=== PATIENT | male | born 1985 | race Caucasian/White ===

== ENCOUNTER 2019-07-20 01:24 | Observation (INO) | payer OTHER ==
[~2019-07-20] VITALS: Ht 167.6 cm; Wt 138.0 kg
[2019-07-20] VITALS (13 sets, daily range): BP systolic 129–168; BP diastolic 74–111
--- NOTE | 2019-07-20 01:47 | PHYS DOC ---
Past Medical History Past Medical History: Hypertension Smoking: Chew Adult General Chief Complaint Chief Complaint: CHEST PAIN-CARDIAC NATURE HPI HPI 34-year-old male presents with substernal chest pressure. He states he woke up with the severe pain and pressure approximately 2 hours ago. He states at that time he felt nauseous and was covered in sweat. He denies any shortness of breath. He states before 2 hours ago he had no symptoms. Currently he describes the pain is severe and nothing is alleviating his symptoms.[] Review of Systems Review of Systems Constitutional: Denies fever or chills [] Eyes: Denies change in visual acuity, redness, or eye pain [] HENT: Denies nasal congestion or sore throat [] Respiratory: Denies cough or shortness of breath [] Cardiovascular: No additional information not addressed in HPI [] GI: Denies abdominal pain, nausea, vomiting, bloody stools or diarrhea [] : Denies dysuria or hematuria [] Musculoskeletal: Denies back pain or joint pain [] Integument: Denies rash or skin lesions [] Neurologic: Denies headache, focal weakness or sensory changes [] Endocrine: Denies polyuria or polydipsia [] All other systems were reviewed and found to be within normal limits, except as documented in this note. Current Medications Current Medications Current Medications Medications (Trade) Dose Ordered Sig/Didi Start Time Stop Time Status Last Admin Dose Admin Aspirin (Children'S Aspirin) 324 mg 1X ONCE 07/20/19 02:00 07/20/19 02:01 DC 07/20/19 02:03 324 MG Nitroglycerin (Nitrostat) 0.4 mg PRN Q5MIN PRN 07/20/19 01:45 07/20/19 02:22 0.4 MG Allergies Allergies Allergies Coded Allergies Type Severity Reaction Last Updated Verified No Known Drug Allergies 07/20/19 No Physical Exam Physical Exam Constitutional: Well developed, well nourished, mild to moderate distress, non- toxic appearance. [] HENT: Normocephalic, atraumatic, bilateral external ears normal, oropharynx moist, no oral exudates, nose normal. [] Eyes: PERRLA, EOMI, conjunctiva normal, no discharge. [] Neck: Normal range of motion, no tenderness, supple, no stridor. [] Cardiovascular:Heart rate regular rhythm, no murmur [] Lungs & Thorax: Bilateral breath sounds clear to auscultation [] Abdomen: Bowel sounds normal, soft, no tenderness, no masses, no pulsatile masses. [] Skin: Warm, dry, no erythema, no rash. [] Back: No tenderness, no CVA tenderness. [] Extremities: No tenderness, no cyanosis, no clubbing, ROM intact, no edema. [] Neurologic: Alert and oriented X 3, normal motor function, normal sensory function, no focal deficits noted. [] Psychologic: Anxious. [] Current Patient Data Vital Signs Vital Signs Date Time Temp Pulse Resp B/P (MAP) Pulse Ox O2 Delivery O2 Flow Rate FiO2 07/20/19 02:22 81 153/83 07/20/19 02:13 19 98 Room Air Lab Values Laboratory Tests Test 07/20/19 01:50 White Blood Count 9.0 x10^3/uL (4.0-11.0) Red Blood Count 4.68 x10^6/uL (4.30-5.70) Hemoglobin 15.6 g/dL (13.0-17.5) Hematocrit 44.6 % (39.0-53.0) Mean Corpuscular Volume 95 fL (79-100) Mean Corpuscular Hemoglobin 33 pg (25-35) Mean Corpuscular Hemoglobin Concent 35 g/dL (31-37) Red Cell Distribution Width 13.0 % (11.5-14.5) Platelet Count 226 x10^3/uL (140-400) Neutrophils (%) (Auto) 57 % (31-73) Lymphocytes (%) (Auto) 32 % (24-48) Monocytes (%) (Auto) 8 % (0-9) Eosinophils (%) (Auto) 3 % (0-3) Basophils (%) (Auto) 1 % (0-3) Neutrophils # (Auto) 5.1 x10^3/uL (1.8-7.7) Lymphocytes # (Auto) 2.8 x10^3/uL (1.0-4.8) Monocytes # (Auto) 0.7 x10^3/uL (0.0-1.1) Eosinophils # (Auto) 0.3 x10^3/uL (0.0-0.7) Basophils # (Auto) 0.1 x10^3/uL (0.0-0.2) Sodium Level 143 mmol/L (136-145) Potassium Level 3.7 mmol/L (3.5-5.1) Chloride Level 106 mmol/L (98-107) Carbon Dioxide Level 26 mmol/L (21-32) Anion Gap 11 (6-14) Blood Urea Nitrogen 19 mg/dL (8-26) Creatinine 1.0 mg/dL (0.7-1.3) Estimated GFR (Cockcroft-Gault) 86.1 BUN/Creatinine Ratio 19 (6-20) Glucose Level 108 mg/dL (70-99) H Calcium Level 9.2 mg/dL (8.5-10.1) Total Bilirubin 0.2 mg/dL (0.2-1.0) Aspartate Amino Transferase (AST) 11 U/L (15-37) L Alanine Aminotransferase (ALT) 34 U/L (16-63) Alkaline Phosphatase 62 U/L (46-116) Troponin I Quantitative < 0.017 ng/mL (0.000-0.055) JZ-Vpx-M-Type Natriuretic Peptide 20 pg/mL (0-124) Total Protein 7.3 g/dL (6.4-8.2) Albumin 3.7 g/dL (3.4-5.0) Albumin/Globulin Ratio 1.0 (1.0-1.7) Lipase 113 U/L (73-393) Laboratory Tests 07/20/19 01:50 Laboratory Tests 07/20/19 01:50 EKG EKG [] Interpretation Time: EKG: Normal sinus rhythm rate [address]-T changes Radiology/Procedures Radiology/Procedures [] Course & Med Decision Making Course & Med Decision Making Pertinent Labs and Imaging studies reviewed. (See chart for details) [ED course: Evaluation reveals a young man with substernal chest pressure. Pain was severe on arrival to the emergency department. EKG did not show any concerning ischemic changes. However, the patient was given sublingual nitro glycerin with near complete resolution of his symptoms. While his heart score was 3 I still believe the patient needs to be observed and risk stratified.] Dragon Disclaimer Dragon Disclaimer This electronic medical record was generated, in whole or in part, using a voice recognition dictation system. Departure Departure Impression: Primary Impression: Chest pain Disposition: 09 ADMITTED INPATIENT Admitting Physician: DARREN Condition: IMPROVED The HEART Score for CP Pts HEART Score for Chest Pain: HEART Score for Chest Pain Response (Comments) Value History Highly Suspicious 2 Age < 45 0 Risk Factors 1 or 2 Risk Factors 1 Troponin < Normal Limit 0 Total 3 Risk Factors: Risk Factors: DM, Current or recent (<one month) smoker, HTN, HLP, family history of CAD, obesity. Risk Scores: Score 0 - 3: 2.5% MACE over next 6 weeks - Discharge Home Score 4 - 6: 20.3% MACE over next 6 weeks - Admit for Clinical Observation Score 7 - 10: 72.7% MACE over next 6 weeks - Early Invasive Strategies Problem Qualifiers Primary Impression: Chest pain Chest pain type: unspecified Qualified Codes: R07.9 - Chest pain, unspecified ASHLY GUTIERREZ DO Jul 20, 2019 01:47
[2019-07-20] MEDS ORDERED: ASPIRIN CHEWABLE 81 MG TABLET. PO ONE (02:00)
[2019-07-20] MEDS: NITROGLYCERIN SUBLINGUAL 0.4 MG BOTTLE OF 25. SL PRN ×3 (02:05→02:22)
[2019-07-20 02:06] LABS: BASO # 0.1 x10^3/uL (0.0-0.2); BASO % 1 % (0-3); EOS # 0.3 x10^3/uL (0.0-0.7); EOS % 3 % (0-3); HEMATOCRIT 44.6 % (39.0-53.0); HEMOGLOBIN 15.6 g/dL (13.0-17.5); LYMPH # 2.8 x10^3/uL (1.0-4.8); LYMPH % 32 % (24-48); MEAN CORPUSCULAR HEMOGLOBIN 33 pg (25-35); MEAN CORPUSCULAR HGB CONC 35 g/dL (31-37); MEAN CORPUSCULAR VOLUME 95 fL (79-100); MONO # 0.7 x10^3/uL (0.0-1.1); MONO % 8 % (0-9); NEUT # 5.1 x10^3/uL (1.8-7.7); NEUT % 57 % (31-73); PLATELET COUNT 226 x10^3/uL (140-400); RED BLOOD COUNT 4.68 x10^6/uL (4.30-5.70)
[2019-07-20 02:15] LABS: CALCIUM 9.2 mg/dL (8.5-10.1); GFR 86.1; POTASSIUM 3.7 mmol/L (3.5-5.1); PROTHROMBIN TIME PATIENT 12.3 SEC (11.7-14.0)
[2019-07-20 02:21] LABS: ALBUMIN 3.7 g/dL (3.4-5.0); TOTAL BILIRUBIN 0.2 mg/dL (0.2-1.0); TOTAL PROTEIN 7.3 g/dL (6.4-8.2)
[2019-07-20] MEDS ORDERED: ACETAMINOPHEN 325 MG TABLET. PO PRN (02:30)
[2019-07-20] MEDS ORDERED: ONDANSETRON PF 4 MG/2 ML VIAL. IV PRN (02:30)
[2019-07-20] MEDS ORDERED: MORPHINE SULFATE 4 MG/ML VIAL. IV PRN (02:30)
[2019-07-20] MEDS ORDERED: NITROGLYCERIN OINT 1 GM PACKET. TP ONE (02:45)
[2019-07-20] MEDS ORDERED: INFLUENZA VAX SCREEN BY RX. MC PRN (05:30)
--- NOTE | 2019-07-20 06:06 | RAD ---
Study: CHEST AP ONLY Indication: Chest pain. Comparison: None available. Findings: Low lung volumes with resultant apparent prominence of the cardiomediastinal silhouette. This is also likely accentuated by portable upright technique. No lobar infiltrate, large effusion or pneumothorax. Impression: Apparent prominence of the cardiomediastinal silhouette is favored in part related to lung low volumes and technique. No radiographic manifestations of overt failure. No lobar consolidation. Electronically signed by: HUMERA JUAREZ MD (07/20/2019 6:03 AM) [facility]
--- NOTE | 2019-07-20 06:18 | EKG ---
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
[2019-07-20] MEDS ORDERED: FLU VAX QS 2019-20 (36MOS+)/PF 0.5 ML SYRINGE. VAX IM ONE (09:00)
--- NOTE | 2019-07-20 10:44 | PDOC2 ---
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 Reports no prior long distance travel and no recent falls or injury. He works that requires good usage of ladder and has not been having any exertional CP nor BENÍTEZ and his last work requiring ladder use was Thursday. Thursday he was having chest pressure which did not last long. He was also feeling fatigued at that time. Last night midnight he woke up with chest pressure describing it like someone is sitting on his chest. He was diaphoretic and nauseated but no significant SOA. He checked his BP and it was high at home like 180s/120s. His pain was constant and finally got better after 3-4 hours when 3 NTG given and NTG paste was pl aced. He was told in the past that he needs BP meds but elected not to have it. No hx of DM nor HLP and no childhood heart disease. No hx of VTE. He does not take any routine medications. No routine NSAID therapy. PAST MEDICAL HISTORY Cardiovascular: HTN Pulmonary: No pertinent hx CENTRAL NERVOUS SYSTEM: Other (No pertinent history) GI: No pertinent hx Heme/Onc: No pertinent hx Hepatobiliary: No pertinent hx Psych: No pertinent hx Musculoskeletal: Other (None) Rheumatologic: No pertinent hx Infectious disease: No pertinent hx ENT: No pertinent hx Renal/: No pertinent hx Endocrine: No pertinent hx Dermatology: No pertinent hx PAST SURGICAL HISTORY Past Surgical History: Arthroscopy (left knee repair) FAMILY HISTORY Family History: Heart Disease (mother) SOCIAL HISTORY Smoke: No ALCOHOL: none Drugs: None Lives: with Family CURRENT MEDICATIONS CURRENT MEDICATIONS Current Medications Medications (Trade) Dose Ordered Sig/Didi Route PRN Reason Start Time Stop Time Status Last Admin Dose Admin Aspirin (Children'S Aspirin) 324 mg 1X ONCE PO 07/20/19 02:00 07/20/19 02:01 DC 07/20/19 02:03 Nitroglycerin (Nitrostat) 0.4 mg PRN Q5MIN PRN SL CHEST PAIN 07/20/19 01:45 07/20/19 02:22 Nitroglycerin (Nitro-Bid Oint) 1 inch 1X ONCE TP 07/20/19 02:45 07/20/19 02:46 DC 07/20/19 06:14 ALLERGIES ALLERGIES: Coded Allergies: No Known Drug Allergies (Unverified , 07/20/19) ROS Review of System 14 point ROS evaluated with pertinent positives noted per HPI PHYSICAL EXAM General: Alert, Oriented X3, Cooperative, No acute distress HEENT: Atraumatic, Mucous membr. moist/pink Lungs: Clear to auscultation, Normal air movement Heart: Regular rate (SR), Normal S1, Normal S2, No murmurs Abdomen: Soft, No tenderness, Other (obese) Extremities: No cyanosis, No edema Skin: No significant lesion Neuro: Normal speech, Sensation intact Psych/Mental Status: Mental status NL, Mood NL MUSCULOSKELETAL: Full range of motion without pain, Osteoarthritic changes both hands VITALS/I&O VITALS/I&O: Vital Signs Date Time Temp Pulse Resp B/P (MAP) Pulse Ox O2 Delivery O2 Flow Rate FiO2 07/20/19 07:00 98.2 65 18 156/90 (112) 97 Room Air 98.2 I & O 07/19/19 07/19/19 07/20/19 15:00 23:00 07:00 Output Total 150 ml Balance -150 ml LABS Lab: Laboratory Tests Test 07/20/19 01:50 07/20/19 05:40 07/20/19 08:30 White Blood Count 9.0 x10^3/uL (4.0-11.0) Red Blood Count 4.68 x10^6/uL (4.30-5.70) Hemoglobin 15.6 g/dL (13.0-17.5) Hematocrit 44.6 % (39.0-53.0) Mean Corpuscular Volume 95 fL (79-100) Mean Corpuscular Hemoglobin 33 pg (25-35) Mean Corpuscular Hemoglobin Concent 35 g/dL (31-37) Red Cell Distribution Width 13.0 % (11.5-14.5) Platelet Count 226 x10^3/uL (140-400) Neutrophils (%) (Auto) 57 % (31-73) Lymphocytes (%) (Auto) 32 % (24-48) Monocytes (%) (Auto) 8 % (0-9) Eosinophils (%) (Auto) 3 % (0-3) Basophils (%) (Auto) 1 % (0-3) Neutrophils # (Auto) 5.1 x10^3/uL (1.8-7.7) Lymphocytes # (Auto) 2.8 x10^3/uL (1.0-4.8) Monocytes # (Auto) 0.7 x10^3/uL (0.0-1.1) Eosinophils # (Auto) 0.3 x10^3/uL (0.0-0.7) Basophils # (Auto) 0.1 x10^3/uL (0.0-0.2) Prothrombin Time 12.3 SEC (11.7-14.0) Prothrombin Time INR 0.9 (0.8-1.1) Sodium Level 143 mmol/L (136-145) Potassium Level 3.7 mmol/L (3.5-5.1) Chloride Level 106 mmol/L (98-107) Carbon Dioxide Level 26 mmol/L (21-32) Anion Gap 11 (6-14) Blood Urea Nitrogen 19 mg/dL (8-26) Creatinine 1.0 mg/dL (0.7-1.3) Estimated GFR (Cockcroft-Gault) 86.1 BUN/Creatinine Ratio 19 (6-20) Glucose Level 108 mg/dL (70-99) H Calcium Level 9.2 mg/dL (8.5-10.1) Total Bilirubin 0.2 mg/dL (0.2-1.0) Aspartate Amino Transferase (AST) 11 U/L (15-37) L Alanine Aminotransferase (ALT) 34 U/L (16-63) Alkaline Phosphatase 62 U/L (46-116) Troponin I Quantitative < 0.017 ng/mL (0.000-0.055) < 0.017 ng/mL (0.000-0.055) < 0.017 ng/mL (0.000-0.055) NT-Mlk-O-Type Natriuretic Peptide 20 pg/mL (0-124) Total Protein 7.3 g/dL (6.4-8.2) Albumin 3.7 g/dL (3.4-5.0) Albumin/Globulin Ratio 1.0 (1.0-1.7) Lipase 113 U/L (73-393) Triglycerides Level 228 mg/dL (0-150) H Cholesterol Level 141 mg/dL (0-200) LDL Cholesterol, Calculated 67 mg/dL (0-100) VLDL Cholesterol, Calculated 46 mg/dL (0-40) H Non-HDL Cholesterol Calculated 113 mg/dL (0-129) HDL Cholesterol 28 mg/dL (40-60) L Cholesterol/HDL Ratio 5.0 Thyroid Stimulating Hormone (TSH) 2.742 uIU/mL (0.358-3.74) Laboratory Tests 07/20/19 01:50 Laboratory Tests 07/20/19 01:50 ASSESSMENT/PLAN ASSESSMENT/PLAN 1. Chest pain: UA features relieved by x3 NTG SL 2. HTN urgency. improving. 3. Chews tobacco 4. Morbid obesity 5. Possible BASHIR 6. DLP 7. Metabolic syndrome Recommendations 1. CP possibly from uncontrolled HTN. Given his significant S/S presentation with risk factors he will need an ischemic workup Ischemic workup options discussed with pt and spouse including risks and benefits and would like to proceed with [facility]. 2. Pending [facility] will start him on statin. lisinopril and chlorthalidone. 3. Will BASHIR w/u referral. wt loss. Dietitian consult. 4. TTE pending. 5. Discussed treatment compliance 6. Cessation of tobacco. ARIEL BENAVIDES MD 07/21/192131: CARDIAC CONSULT ASSESSMENT/PLAN ASSESSMENT/PLAN Late entry for 07/20/2019. Pt. seen and examined. Agree with above PRODUCT CRAFTSMAN note. 34 y.o male with unstable angina. Given multiple risk factors a cath was recommended. Coronary angiography is unremarkable. Aggressive medical therapy to be continued Supportive care. GAYLE GUTIERREZ APRN Jul 20, 2019 10:44 ARIEL BENAVIDES MD Jul 21, 2019 21:32
[2019-07-20] MEDS ORDERED: IV NORMAL SALINE 1000ML BAG 1,000 ML IV SCH (11:15)
[2019-07-20] MEDS ORDERED: HEPARIN for ARTERIAL LINE 1,500 ML ONE (11:25)
[2019-07-20] MEDS ORDERED: LIDOCAINE 1% PF 2 ML VIAL. ONE (11:25)
[2019-07-20] MEDS ORDERED: IOHEXOL 300 MG/ML 100ML VIAL. ONE (11:25)
[2019-07-20] MEDS ORDERED: fentaNYL PF VIAL 100 MCG/2 ML VIAL ONE (11:27)
[2019-07-20] MEDS ORDERED: VERAPAMIL 5 MG/2 ML VIAL. ONE (11:27)
[2019-07-20] MEDS ORDERED: MIDAZOLAM HCL/PF 2 MG/2 ML VIAL. ONE ×2 (11:27→11:54)
[2019-07-20] MEDS ORDERED: HEPARIN for IV BOLUS 10,000 UNIT/10 ML VIAL. ONE (11:27)
[2019-07-20] MEDS ORDERED: NITROGLYCERIN 200 MCG/2 ML SYRINGE FOR CATH/VASC LAB. ONE (11:28)
[2019-07-20] MEDS ORDERED: NITROGLYCERIN 200 MCG/2 ML SYRINGE FOR CATH/VASC LAB. IART ONE (11:45)
[2019-07-20] MEDS ORDERED: VERAPAMIL 5 MG/2 ML VIAL. IART ONE (11:45)
[2019-07-20] MEDS ORDERED: HEPARIN for IV BOLUS 10,000 UNIT/10 ML VIAL. IART ONE (11:45)
[2019-07-20] MEDS ORDERED: IOHEXOL 300 MG/ML 100ML VIAL. IART ONE (11:45)
[2019-07-20] MEDS ORDERED: fentaNYL PF VIAL 100 MCG/2 ML VIAL IV ONE (11:45)
[2019-07-20] MEDS ORDERED: MIDAZOLAM HCL/PF 2 MG/2 ML VIAL. IV ONE (11:45)
[2019-07-20] MEDS ORDERED: LIDOCAINE 1% PF 2 ML VIAL. INJ ONE (11:45)
--- NOTE | 2019-07-20 12:20 | NUR ---
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 Educated patient and family re: s/p cath instructions
[2019-07-20] MEDS ORDERED: CHLORTHALIDONE 25 MG TABLET. PO SCH (13:00)
[2019-07-20] MEDS ORDERED: LISINOPRIL 20 MG TABLET PO SCH (13:00)
--- NOTE | 2019-07-20 13:19 | CARD ---
MR#: [id number] Date of Study: 07/20/2019 Ordering Physician: GAYLE GUTIERREZ, Referring Physician: GAYLE GUTIERREZ, Tech: Kelsey Lo RT (R) APPROVED REPORT Technologist: Kelsey Lo RT (R) Nurse: Irma Rios RN Procedure(s) performed: fl time: 4.2 mins dose: 78 gy/cm2 contrast: 59 ml moderate sedation: 26 mins LHC, Coronary angiography CS Clinical Frailty Scale CS Clinical Frailty Scale: Managing Well Heart Failure Heart Failure: No PROCEDURE NARRATIVE INFORMED CONSENT: After explaining the risks and benefits of the procedure and alternatives, informed consent was obtained. The patient was brought electively to the cardiac catheterization lab. A timeout was performed confi rming the patient's name, date of , procedure, and site of procedure. All necessary personnel w ere wearing the appropriate protective equipment and radiation monitor devices. (See nursing notes for medications administered). ACCESS: The right wrist was sterilely prepped and draped in the usual fashion. The right wrist was infiltrat ed with 1 mL of 2% lidocaine for subcutaneous anesthesia. A 6 Tajik Terumo glide sheath was inserte d into the right radial artery without difficulty. CORONARY ANGIOGRAPHY: Right and left coronary angiography was performed using a 6Fr TIG 4.0 catheter and JL 3.5 and JR4 ca theters. Left ventricular end diastolic pressure was obtained with a pigtail catheter and pullback w as performed after left ventriculography. All catheter exchanges and advancements were performed ove r a guidewire. CLOSURE: At case completion the right radial sheath was removed and a Terumo radial band was applied with 13 m l of air. COMPLICATIONS: The patient tolerated the procedure well and there were no immediate complications. FINDINGS: HEMODYNAMICS: LVEDP 14 mm Hg No gradient on LV to aortic pullback. AO: 170/90 LEFT VENTRICULOGRAM: Deferred CORONARY ANGIOGRAPHY: LM is a large caliber vessel with normal angiographic appearance. LAD is a large caliber vessel with normal angiographic appearance. LCx is a moderate caliber non-dominant vessel with normal angiographic appearance. OM1 is a moderate caliber vessel with normal angiographic appearance. RCA is a large caliber dominant vessel with normal angiographic appearance. RPDA and RPL are moderate caliber vessels with normal angiographic appearance. Conclusion 1. Normal left sided filling pressures. 2. Normal angiographic appearance of the coronary arteries. Recommendations Aggressive Medical Therapy Signed by : Leonel Butler, Electronically Approved : 07/20/2019 13:18:34
--- NOTE | 2019-07-20 13:25 | HP ---
ADMIT DATE: 07/20/2019 CHIEF COMPLAINT: Chest pain. HISTORY OF PRESENT ILLNESS: The patient is a pleasant middle-aged white male who presented with chest pain, rates it a 7/10. He got 3 nitroglycerins that seemed to help his pain. He also has hypertensive urgency with blood pressures in the 176/109 range. His triglycerides are high. He has got a couple of risk factors. We are going to admit the patient and consult Cardiology. I just talked to Cardiology nurse practitioner, Sara Arteaga. He is going to consider cardiac cath with the patient. PAST MEDICAL HISTORY: Hypertension. ALLERGIES: None. FAMILY HISTORY: Coronary artery disease. SOCIAL HISTORY: He does not drink, smoke or take drugs. He is . MEDICATIONS: Reviewed, please refer to the MRAD. REVIEW OF SYSTEMS: GENERAL: No history of weight change, weakness or fevers. SKIN: No bruising, hair changes or rashes. EYES: No blurred, double or loss of vision. NOSE AND THROAT: No history of nosebleeds, hoarseness or sore throat. HEART: No history of palpitations, chest pain or shortness of breath on exertion. LUNGS: Denies cough, hemoptysis, wheezing or shortness of breath. GASTROINTESTINAL: Denies changes in appetite, nausea, vomiting, diarrhea or constipation. GENITOURINARY: No history of frequency, urgency, hesitancy or nocturia. NEUROLOGIC: Denies history of numbness, tingling, tremor or weakness. PSYCHIATRIC: No history of panic, anxiety or depression. ENDOCRINE: No history of heat or cold intolerance, polyuria or polydipsia. EXTREMITIES: Denies muscle weakness, joint pain, pain on walking or stiffness. PHYSICAL EXAMINATION: VITALS: Within normal limits and are stable. GENERAL: No apparent distress. Alert and oriented. HEENT: Head is normocephalic, atraumatic, pupils were equally round and reactive to light and accommodation. NECK: Supple, no JVD, no thyromegaly was noted. LUNGS: Clear to auscultation in all lung reynolds without rhonchi or wheezing. HEART: RRR, S1, S2 present. Peripheral pulses intact, no obvious murmurs were noted. ABDOMEN: Soft, nontender. Positive bowel sounds no organomegaly, normal bowel sounds. EXTREMITIES: Without any cyanosis, clubbing, or edema. Pedal pulses intact, Homans sign is negative. NEUROLOGIC: Normal speech, normal tone. A & O x3, moves all extremities, no obvious focal deficits. PSYCHIATRIC: Normal affect, normal mood. Stable. SKIN: No ulcerations or rashes, good skin turgor, no jaundice. VASCULAR: Good capillary refill, neurovascular bundle appears to be intact. LABORATORY DATA: Troponin is 0. ASSESSMENT AND PLAN: Chest pain with a couple of risk factors. The patient has been admitted. We are doing serial enzymes, serial EKGs, cardiac monitoring, daily aspirin, consult Cardiology, p.r.n. nitroglycerin. Suspect he may need a stress test and/or cardiac catheterization. CRISTIAN TOVAR DO DR: DIEGO/ale JOB#: [id number] / [id number]
--- NOTE | 2019-07-20 15:45 | NUR ---
OK to dc per cardiology
[2019-07-20] MEDS ORDERED: CHLO25TA10 PO (15:47)
[2019-07-20] MEDS ORDERED: LISI-130 PO (15:47)
[2019-07-20] MEDS ORDERED: ATOR20TA58 PO (15:47)
--- NOTE | 2019-07-20 18:45 | NUR ---
Discharge Note: CM JEAN Discharge instructions and discharge home medications reviewed with Patient and a copy given. All questions have been answered and understanding verbalized. The following instructions and handouts were given: discharge medication list, education re: hypertension, and new prescribed meds. Discontinued lines and drains: IV and TRB, applied dressing to right radial, clean dry intact. Patient discharged to home with spouse via ambulation
[2019-07-20] MEDS ORDERED: ATORVASTATIN CALCIUM 20 MG TABLET PO SCH (21:00)
--- NOTE | 2019-07-21 08:32 | CARD ---
MR#: [id number] Date of Study: 07/20/2019 Ordering Physician: GAYLE GUTIERREZ, Referring Physician: GAYLE GUTIERREZ, Tech: Lolis Monsivais APPROVED REPORT EXAM: Two-dimensional and M-mode echocardiogram with Doppler and color Doppler. Other Information Quality : AverageHR: 70bpm INDICATION Chest Pain 2D DIMENSIONS RVDd2.9 (2.9-3.5cm)Left Atrium(2D)4.2 (1.6-4.0cm) IVSd1.5 (0.7-1.1cm)Aortic Root(2D)3.0 (2.0-3.7cm) LVDd5.2 (3.9-5.9cm)LVOT Diameter2.1 (1.8-2.4cm) PWd1.3 (0.7-1.1cm)LVDs3.4 (2.5-4.0cm) FS (%) 35.5 %SV83.4 ml LVEF(%)64.5 (>50%) Aortic Valve AoV Peak Jamaal.122.3cm/sAoV VTI20.9cm AO Peak GR.6.0mmHgLVOT VTI 18.85cm AO Mean GR.3mmHg Mitral Valve MV E Rwhmbipx46.6cm/sMV DECEL [id number] MV A Ysysoysx13.6cm/sE/A Ratio1.2 TDI Lateral E' P. V9.98cm/sMedial E' P. V8.82cm/s E/Lateral E'6.8E/Medial E'7.7 Pulmonary Vein S1 Afslnbdr57.7cm/sS2 Dbazptsc23.01cm/s D2 Mceuvwmy99.0cm/sPVa [id number] LEFT VENTRICLE The left ventricle is normal size. There is moderate concentric left ventricular hypertrophy. The lef t ventricular systolic function is normal. The Ejection Fraction is 55-60%. There is normal LV segmen anjel wall motion. The left ventricular diastolic function and filling is normal for age. RIGHT VENTRICLE The right ventricle is mildly dilated. There is normal right ventricular wall thickness. Systolic fun ction is borderline reduced. ATRIA The left atrium size is normal. The right atrium is mildly dilated. The interatrial septum bows towar d left atrium consistent with elevated right atrial pressure. AORTIC VALVE The aortic valve is normal in structure and function. Doppler and Color Flow revealed no significant aortic regurgitation. There is no significant aortic valvular stenosis. MITRAL VALVE The mitral valve is normal in structure and function. There is no evidence of mitral valve prolapse. There is no mitral valve stenosis. Doppler and Color Flow revealed no mitral valve regurgitation note d. TRICUSPID VALVE The tricuspid valve is normal in structure and function. Doppler and Color Flow revealed no tricuspid valve regurgitation noted. There is no tricuspid valve stenosis. PULMONIC VALVE The pulmonic valve is not well visualized. Doppler and Color Flow revealed trace pulmonic valvular re gurgitation. GREAT VESSELS The aortic root is normal in size. The IVC was not well visualized. PERICARDIAL EFFUSION There is no evidence of significant pericardial effusion. Critical Notification Critical Value: No <Conclusion> Technically difficult study. Valves not well visualized. The left ventricular systolic function is normal. The Ejection Fraction is 55-60%. There is normal LV segmental wall motion. There is no evidence of significant pericardial effusion. Signed by : Anjum Mccloud, Electronically Approved : 07/21/2019 08:31:35
== END 2019-07-20 19:09 | disposition home or self-care (01) ==
LOC: ER 01:24 → 2 SOUTH 02:17
PROVIDERS: ADMIT Internal Medicine; ATTEND Internal Medicine
DX: R07.2 Precordial pain (principal); I10 Essential (primary) hypertension; E66.9 Obesity, unspecified; I16.0 Hypertensive urgency; Z82.49 Family history of ischemic heart disease and other diseases of the circulatory system; Z72.0 Tobacco use; Z23 Encounter for immunization
CPT/HCPCS: 36415; 71045; 80053; 80061; 83690; 83880; 84443; 84484; 85025; 85610; 90471; 90686; 93005; 93306; 93458; 96374; 96375; 99284; C1769; C1892; G0378; J1644; J2250; J3010; J3490; J7030; Q9967; 99152; 99153; G0379